=== PATIENT | male | born 1975 | race Caucasian/White ===

== ENCOUNTER 2021-03-12 09:33 | Emergency (ER) | payer SELFPAY ==
[2021-03-12 09:50] VITALS: BP 131/50; PULSE 57; RESP 15; TEMP 36.8; O2SAT 99; BMI 24.4
--- NOTE | 2021-03-12 11:43 | ED_ITS ---
HPI - Abdominal Pain General: Chief Complaint: Abdominal Pain Stated Complaint: PT states they think they have a hernia Time Seen by Provider: 03/12/21 09:47 History of Present Illness: HPI narrative: Patient has had a hernia for a few weeks. Comes in for evaluation. Hernia located down in groin area. Denies any other health problems. MD elicited complaint: abdominal pain Onset (ago): week(s) Pain Consistency: colicky Location: Suprapubic Severity: mild Associated Symptoms: Reports no associated symptoms and other (Believes he has a hernia down his groin areas been present for a few weeks); Denies chills and fever(s) Review of Systems Const: Denies: fever(s) or chills GI: Reports: other (Believes he has a hernia down his groin areas been present for a few weeks) Psych: Denies: anxiety PFSH ED PFSH: Social History (Updated 01/12/20 @ 14:36 by Michelle Escoto LPN) Smoking and tobacco status: current every day smoker Alcohol intake: never Adopted: No Caregiver/support person: No Lives independently: No Household members: spouse and children Marital status: Current occupational status: employed History of recent travel: No Sexually active: Yes Current gender identity: Male Physical Exam Const: COMMON NORMALS: no acute distress GENERAL APPEARANCE: cooperative : GENITAL IMAGES (MALE): 1. Soft palpable reducible mass consistent with inguinal hernia Psych: COMMON NORMALS: mental status grossly normal Skin: COMMON NORMALS: no rashes or lesions noted GENERAL SKIN EXAM: no rashes or lesions noted Course Vital Signs: Vital signs: Vital Signs Temperature 98.2 F 03/12/21 09:50 Pulse Rate 57 L 03/12/21 09:50 Respiratory Rate 15 03/12/21 09:50 Blood Pressure 131/50 03/12/21 09:50 Pulse Oximetry 99 03/12/21 09:50 MDM - Abdominal Pain MDM Narrative: Medical decision making narrative: Patient currently has 100% insurance 00H. Patient is wanting get his hernia taken care of and presents for that today. Discharge Plan Discharge Patient Disposition: Home Clinical Impression: Hernia, inguinal Qualifiers: Obstruction and gangrene presence: without obstruction or gangrene Laterality: unilateral Recurrence: not specified as recurrent Qualified Code(s): K40.90 - Unilateral inguinal hernia, without obstruction or gangrene, not specified as recurrent Condition: Stable Prescriptions: No Action No Known Home Medications RF: 0 Discharge Orders: Discharge ED (Routine); Ordered 03/12/21 Ordered By: Dex Martinez Discharge Diet: Usual diet Discharge Activity: Increase activity as tolerated Patient Instructions: Inguinal Hernia (ED) Activity Restrictions/Additional Instructions: You will be contacted by the hospital with an appointment for follow-up with a general surgeon. If the redness swelling or significant pain occurs with this hernia please return here or follow-up with the PCP that you will be referred to. Coding Level of Care Code ED Commercial Painter for Luanne Abdullahi
[2021-03-12 11:52] VITALS: BP 129/82; PULSE 60; RESP 16; O2SAT 98
--- NOTE | 2021-03-13 06:47 | DCPLANNER ---
build manager had message to schedule a follow up appointment for patient with general surgery. build manager emailed patients information to Cate Appiah and Malia at [facility] General Surgery / ENT clinic. Patients information will be printed and reviewed. Clinic will call patient with appointment information.
--- NOTE | 2021-03-14 16:02 | DCPLANNER ---
corporate affairs manager had message to speak with patient about getting a primary care physician. Patient stated that he would like to get established with a provider in the [facility] network. corporate affairs manager called [facility] Family Medicine, spoke with Gill, gave clinic patients information. A follow up appointment was scheduled for Sunday, March 20, 2022 at 11:[address] Garcia. corporate affairs manager called patient and gave him the appointment information.
--- NOTE | 2021-03-18 08:42 | DCPLANNER ---
Addendum entered by Ama Naranjo 04/04/21 17:34: Patient had a follow up appointment scheduled for 03.20.21 with [facility] - patient did not attend appointment. Addendum entered by Ama Naranjo 04/01/21 08:25: Appointment was scheduled for 03.25.21 - this appointment was rescheduled to a later date. Original Note: Patient has a follow up appointment scheduled for Thursday, March 25, 2021 at 9:[address] Chamberlain. Clinic will call patient with appointment information.
== END 2021-03-12 12:02 | disposition home or self-care (01) ==
PROVIDERS: Emergency Provider Nurse Practitioner Family
DX: K40.90 Unilateral inguinal hernia, without obstruction or gangrene, not specified as recurrent (principal); F17.210 Nicotine dependence, cigarettes, uncomplicated
CPT/HCPCS: 99283

== ENCOUNTER → 2021-05-17 11:46 | Outpatient (BNVA) | payer SELFPAY | PROVIDERS: Visit Provider Surgery | DX: Z20.822 Contact with and (suspected) exposure to COVID-19 (principal); Z11.52 Encounter for screening for COVID-19 | CPT/HCPCS: 87635 ==

== ENCOUNTER 2021-05-23 09:48 | Day surgery (SDC) | payer SELFPAY ==
[2021-05-22 12:04] VITALS: BMI 24.4
[2021-05-23] VITALS (13 sets, daily range): BP systolic 96–127; BP diastolic 46–73; PULSE 45–67; RESP 10–18; TEMP 36.2–36.9; O2SAT 95–98
--- NOTE | 2021-05-23 10:30 | W.PM.OPSFHP ---
Same Day Surgery H&P Indication for Procedure/HPI DATE OF PROCEDURE: May 23, 2021 CHIEF COMPLAINT/INDICATIONFOR SURGICAL PROCEDURE: Bilateral inguinal hernia repair PREOP DIAGNOSIS: bilateral inguinal hernia PLANNED PROCEDURE: Operation Date: 05/23/21 11:20 Proposed Procedures p Laparoscopic Bilateral Inguinal Hernia Repair [id number] x2/k40.20(Bilateral) - Darin Chamberlain MD Medications/Allergies* Home Medications Medication Instructions Recorded Confirmed Type fexofenadine 60 mg tablet (Beata 60 mg PO DAILY 04/16/21 05/23/21 History Allergy) guaifenesin 600 mg tablet, 600 mg PO DAILY 04/16/21 05/23/21 History extended release 12 hr (Mucinex) ibuprofen 200 mg tablet 200 mg PO Q6H PRN 04/16/21 05/23/21 History Allergies/Adverse Reactions Allergy/AdvReac Type Severity Reaction Status Date / Time No Known Allergies Allergy Verified 05/22/21 12:02 Pertinent History/Comorbid Conditions* Medical History (Updated 05/16/21 @ 11:54 by Jayleen Spaulding) Psychiatric care Social History Smoking and tobacco status: current every day smoker (pack a day ) Alcohol intake: never Adopted: No Caregiver/support person: No Lives independently: No Household members: spouse and children Marital status: Current occupational status: employed History of recent travel: No Sexually active: Yes Current gender identity: Male Pertinent Exam Findings alert, oriented x 3 and regular rate & rhythm Recommendations Surgery/Procedure today Coding Level of Care Code Acute Safety Trainer for Luanne Abdullahi
[2021-05-23] MEDS: sodium chloride 0.9% 1,000 ML 30 ML IV (10:34)
--- NOTE | 2021-05-23 10:57 | ANES.PREANE2 ---
Pre-Anesthetic Assessment Height/Weight: Height 1.85 m Weight 83.915 kg Temp Pulse Resp BP Pulse Ox 97.2 F L 51 L 18 103/62 97 05/23/21 10:11 05/23/21 10:11 05/23/21 10:11 05/23/21 10:11 05/23/21 10:11 Preop Diagnosis: bilateral inguinal hernia Operation Date: 05/23/21 11:20 Proposed Procedures p Laparoscopic Bilateral Inguinal Hernia Repair [id number] x2/k40.20(Bilateral) - Darin Chamberlain MD Familial anesthetic complications: none Was Beta Edinson taken within 24 hours: N/A Was Clonidine taken within 24 hours: N/A Last intake: Intake Last Liquid Date 05/22/21 Last Liquid Time 21:00 Last Solid Date 05/22/21 Last Solid Time 21:00 Social Tobacco Exam alert, oriented x 3, clear to auscultation bilaterally and regular rate & rhythm Airway Mallampati: Class II Dentition: chipped and other (very poor dentition, multiple missing, discolored) Pulmonary None reported CV/HEM None reported None reported Hepatic None reported GI None reported Metabolic None reported Musc/skel None reported Neuropsych None reported Anesthetic Plan ASA status: 1 Anesthesia: General Medications/Allergies Home Medications Medication Instructions Recorded Confirmed Last Taken Type fexofenadine 60 mg tablet (Beata 60 mg PO DAILY 04/16/21 05/23/21 05/22/21 History Allergy) guaifenesin 600 mg tablet, 600 mg PO DAILY 04/16/21 05/23/21 05/22/21 History extended release 12 hr (Mucinex) ibuprofen 200 mg tablet 200 mg PO Q6H PRN 04/16/21 05/23/21 05/22/21 History Allergies Allergy/AdvReac Type Severity Reaction Status Date / Time No Known Allergies Allergy Verified 05/22/21 12:02 Current Medications Generic Name Dose Route Start Last Admin Trade Name Freq PRN Reason Stop Dose Admin Sodium Chloride 1,000 mls @ 30 mls/hr 05/23/21 09:45 05/23/21 10:34 Sodium Chloride 0.9% IV 05/24/21 09:44 30 mls/hr .Q24H MADDISON Administration PFSH Anesthesia Medical History (Updated 05/16/21 @ 11:54 by Jayleen Spaulding) Psychiatric care Social History Smoking and tobacco status: current every day smoker (pack a day ) Alcohol intake: never Adopted: No Caregiver/support person: No Lives independently: No Household members: spouse and children Marital status: Current occupational status: employed History of recent travel: No Sexually active: Yes Current gender identity: Male Data Anesthesia Cardiac Studies: No Data to Display
--- NOTE | 2021-05-23 12:41 | PM.OP ---
Operative Report Date of procedure: May 23, 2021 Pre-op diagnosis: Bilateral inguinal hernia Post-op diagnosis: 1. Right indirect inguinal hernia 2. Left direct inguinal hernia Procedure done: Laparoscopic total extraperitoneal repair of right indirect and left direct inguinal hernia with Surgimax 3D mesh Pathology: none sent Surgeon: Darin Chamberlain Anesthesia: General Condition: stable Disposition: PACU Procedure: The patient was taken to the operating room. After IV antibiotic was administered, the abdomen was prepped and draped in a sterile manner. Using a 15 blade, a 1.0 cm transverse incision was made infraumbilically on the right side. Subcutaneous tissue was divided using electrocautery and the anterior rectus sheath divided using an 11 blade. The rectus muscle was retracted laterally and the extraperitoneal space identified and the space was opened using a balloon dissector. A 11 mm port was placed and 12 mm of pneumoperitoneum was created. A 10 mm 30? scope was introduced and the retrorectus space was opened using the camera up to the pubic symphysis and 5 mm ports were placed in the midline, one 2-fingerbreadths above the pubic symphysis and the other midway between these two ports under direct visualization. The pubic bone was identified, the dissection was then carried laterally where the iliopubic tract was identified. On the right side, there was no femoral, obturator or direct hernia noted. The inferior epigastric artery was identified and dissection was carried posterior to it and laterally, the space was opened up to the level of the umbilicus superior to the anterior superior iliac spine. I then proceeded to dissect out the spermatic cord and the indirect hernial sac was reduced . On the left side, there was no femoral or femoral hernia noted but there was a direct hernia which was reduced The inferior epigastric artery was identified and dissection was carried posterior to it and laterally, the space was opened up to the level of the umbilicus superior to the anterior superior iliac spine. I then proceeded to dissect out the spermatic cord and there was no indirect hernia noted. 16 x 10cm Surgimax 3D mesh was rolled and introduced through the 10 mm port and then rolled laterally and apposed well against the abdominal wall to cover the myopectineal orifice completely on the right side and secured with Securestraps. A similar mesh was placed on the left side to cover the myopectineal orifice completely and again secured with Securestraps. 10 Cc of 0.5% Marcaine was infiltrated into the preperitoneal space. The extraperitoneal space was desufflated under direct visualization to ensure no slippage of hernial sac under the mesh. All ports were removed, the anterior rectus fascia at the infraumbilical port closed using figure of eight 0 Vicryl sutures, subcutaneous tissue approximated using 3-0 Vicryl sutures and skin at all three port sites were closed using running subcuticular 4-0 Monocryl sutures and Dermabond. 10 mL of 0.5% Marcaine was infiltrated at the port sites. The patient was stable throughout the procedure.
--- NOTE | 2021-05-23 12:53 | SUR.PHASEI ---
12:43 RECEIVED PATIENT FROM OR STAFF. VENTILATING WELL. MEDICATED FOR SHIVERING. SB ON MONITOR.
[2021-05-23] MEDS: meperidine 50 mg/mL INJ 12.5 MG IVP (12:56)
[2021-05-23] MEDS: fentaNYL 50 mcg/mL INJ 2mL IVP (13:10)
--- NOTE | 2021-05-23 13:11 | SUR.PHASEI ---
13:11 re-medicated for pain
[2021-05-23] MEDS: HYDROcodone-acetaminophen 5-325 mg Tablet 1 TAB PO (14:13)
== END 2021-05-23 14:30 | disposition home or self-care (01) ==
PROVIDERS: Visit Provider Surgery
PROC: (CPT 49650; principal; 2021-05-23 11:10)
DX: K40.20 Bilateral inguinal hernia, without obstruction or gangrene, not specified as recurrent (principal); F17.210 Nicotine dependence, cigarettes, uncomplicated
CPT/HCPCS: 49505; C1781; J0690; J1100; J2175; J2250; J2405; J2704; J2710; J3010; J3490; J7030